=== PATIENT | female | born 1935 | race Caucasian/White ===

== ENCOUNTER → 2017-01-19 | Outpatient (CLI) | payer MEDICARE ==
--- NOTE | 2017-01-19 22:10 | PCVCIMAG ---
EXAM: BILATERAL LOWER EXTREMITY ARTERIAL DUPLEX INDICATION: Peripheral Arterial Disease. Leg pain. FINDINGS: Right Leg: Satisfactory arterial waveforms in the common femoral and profunda femoral artery and in the superficial femoral artery and popliteal artery without high-grade stenosis. Occlusion throughout the anterior tibial artery. The posterior tibial and peroneal arteries are patent. Left Leg: Satisfactory arterial waveforms in the common femoral and profunda femoral artery. 60-70% stenosis mid superficial femoral artery. 60% stenosis mid popliteal artery. Occlusion of the anterior tibial artery. Segmental occlusion proximal posterior tibial artery. Peroneal artery is patent. IMPRESSION: Occlusion right anterior tibial artery. 60-70% mid left superficial femoral artery. 60% stenosis mid left popliteal artery. Occlusion left anterior tibial artery. Segmental occlusion proximal left posterior tibial artery. LOC:OFFICE
== END | disposition home or self-care (01) ==
LOC: PCVCIMAG 16:10
PROVIDERS: ATTEND Nuclear Medicine Nuclear Cardiology
DX: I70.202 Unspecified atherosclerosis of native arteries of extremities, left leg (principal); I77.1 Stricture of artery; L97.929 Non-pressure chronic ulcer of unspecified part of left lower leg with unspecified severity; E11.9 Type 2 diabetes mellitus without complications
CPT/HCPCS: 36415; 93925

== ENCOUNTER → 2017-01-25 | Outpatient (CLI) | payer MEDICARE ==
[~2017-01-25] MED LIST: CLOPIDOGREL BISULFATE 75 MG TABLET ONE; DIAZEPAM 10 MG TABLET. ONE; EPINEPHrine 1 MG/ML VIAL ONE; EPTIFIBATIDE BOLUS 2,000 MCG/ML 10ML VIAL. IV ONE; HEPARIN 1,000 UNIT/ML VIAL for PCVC ONE; HEPARIN SODIUM 5,000 UNIT/ML VIAL for PCVC. ONE; IODIXANOL 270 MG/ML 100 ML VIAL. ONE; IV NORMAL SALINE 1000ML BAG 1,000 ML ONE; IV NORMAL SALINE 500ML BAG 500 ML ONE; LIDOCAINE 1% Multi-Dose 20 ML VIAL. ONE; MIDAZOLAM HCL/PF 2 MG/2 ML VIAL. ONE; fentaNYL PF VIAL 100 MCG/2 ML VIAL ONE
--- NOTE | 2017-01-25 18:20 | PCVCINTER ---
EXAM: 1. AORTOGRAM AND BILATERAL LOWER EXTREMITY RUNOFF ANGIOGRAM 2. BILATERAL RENAL ANGIOGRAPHY 3. LEFT TIBIOPERONEAL TRUNK ATHERECTOMY AND STENT PLACEMENT. 4. SECONDARY THROMBECTOMY LEFT TIBIOPERONEAL TRUNK. 5. STENT PLACEMENT AND DRUG COATED BALLOON ANGIOPLASTY LEFT SUPERFICIAL FEMORAL ARTERY. INDICATION: Peripheral arterial disease. Coronary artery disease. Nonhealing ulcer right lower extremity. Hypertension. Renal atherosclerosis. PROCEDURE: Procedure and risks of angiography intervention is appropriate including limb loss stroke and were discussed with the patient's family and consent obtained. The patient's right groin was prepped abnormal sterile fashion. IV conscious sedation was used to procedure with appropriate monitoring from 11:00 AM through 12:30 PM. Ultrasound was used to interrogate the right groin and showed the right common femoral artery to be patent. A permanent spot film was obtained. Under ultrasound guidance access into the right common femoral artery was obtained and a 5 Montenegrin sheath was placed. Through this a 5 Montenegrin flush catheter was placed into the abdominal aorta at the level of the renal arteries and AP aortogram was performed. Catheter was positioned at the aortic bifurcation and both oblique views of the pelvis were obtained. Catheter was positioned into the right external iliac artery and right leg runoff angiography was performed. Catheter was exchanged for a visceral catheter was placed into the right renal arteries and right renal angiograms obtained. Catheter was placed into the the left renal arteries and left renal angiograms were obtained. Catheter was advanced to the level of the left external iliac artery and left leg runoff angiography was obtained. Patient was given 4500 units of heparin. A 6 Montenegrin crossover sheath was placed via the right groin to the level of the left common femoral artery. Atherectomy of the left tibioperoneal trunk was performed with 0.9 mm [email or web address] laser atherectomy catheter in the standard fashion. Following atherectomy small areas of thrombus were observed and because of this secondary thrombectomy throughout the left tibioperoneal trunk was carried out with mechanical suction thrombectomy catheter in the standard fashion. Minimal debris was removed. Stent placement across the areas of high-grade stenosis in the left tibioperoneal trunk was carried out with a 3.0 x 30 Medtronic integrity stent with subsequent dilatation to 3.0 mm. Following this drug coated balloon angioplasty of the left superficial femoral artery was carried out with a 5 x 40 Medtronic Admiral MACHINE II COREMAKER catheter. Follow-up angiogram was performed. Stent placement across the areas of high-grade stenosis in the left superficial femoral artery was carried out with a 6 x 20 Smart stent with subsequent dilatation to 5.0 mm. Catheters and wires removed. Sheath was removed and hemostasis obtained using the FISH device. No immediate complications. FINDINGS: Aortogram: There is one right and one left renal artery. Mild plaque infrarenal abdominal aorta. Pelvis: Moderate stenosis proximal/mid common iliac artery. Left common iliac artery is patent. Both internal iliac arteries are patent. The right and left external iliac arteries are patent. The right and left common femoral and profunda femoral arteries are patent. Right renal artery: Minimal plaque proximal vessel without significant stenosis. Left renal artery: Minimal plaque proximal vessel without significant stenosis. Right leg: Moderate scattered plaque throughout the superficial femoral artery and popliteal artery without high-grade stenosis. The anterior tibial and peroneal arteries are occluded. 95% stenosis distal tibioperoneal trunk with moderate stenosis in the proximal and proximal to mid posterior tibial artery. Left le% stenosis mid/distal superficial femoral artery with mild diffuse stenosis in the popliteal artery most marked distally. Segmental occlusion of the tibioperoneal trunk. The anterior and posterior tibial arteries are occluded. The mid and distal peroneal artery shows good patency to refill the distal posterior tibial artery and the distal most anterior tibial artery to runoff into the foot. Left tibioperoneal trunk: Following procedure as above vessel is widely patent. Left superficial femoral artery: Following procedure as above the treated portion of the vessel shows satisfactory patency. IMPRESSION: Segmental occlusion left tibioperoneal trunk and 80% stenosis mid/distal left superficial femoral artery were treated as above with good patency restored. Occlusion of the left anterior and posterior tibial arteries. Critical grade stenosis distal right tibial peroneal trunk with single right posterior tibial artery runoff. follow up LOC:[place] [id number]
== END | disposition home or self-care (01) ==
LOC: PCVCINTER 09:26
PROVIDERS: ATTEND Nuclear Medicine Nuclear Cardiology
DX: I70.213 Atherosclerosis of native arteries of extremities with intermittent claudication, bilateral legs (principal); I25.10 Atherosclerotic heart disease of native coronary artery without angina pectoris; I70.1 Atherosclerosis of renal artery; I10 Essential (primary) hypertension
CPT/HCPCS: 36252; 37186; 37226; 37231; 75716; 76937; 99152; 99153; C1725; C1751; C1757; C1769; C1876; C1885; C1887; C1894; C2623; J0171; J0690; J1327; J1644; J2250; J3010; J7030; J7040; Q9966

== ENCOUNTER → 2017-01-26 | Outpatient (CLI) | payer MEDICARE ==
[~2017-01-26] MED LIST changes: -CLOPIDOGREL BISULFATE 75 MG TABLET ONE; -EPINEPHrine 1 MG/ML VIAL ONE; -HEPARIN 1,000 UNIT/ML VIAL for PCVC ONE; +PROTAMINE 50 MG/5 ML VIAL. IV ONE; +diphenhydrAMINE 50 MG/ML VIAL ONE; +hydrALAZINE 20 MG/ML VIAL. ONE
--- NOTE | 2017-01-26 10:45 | PCVCINTER ---
EXAM: 1. RIGHT TIBIOPERONEAL TRUNK/PROXIMAL POSTERIOR TIBIAL ARTERY ATHERECTOMY AND STENT PLACEMENT. 2. SECONDARY THROMBECTOMY RIGHT TIBIOPERONEAL TRUNK/PROXIMAL POSTERIOR TIBIAL ARTERY. 3. RIGHT COMMON ILIAC ARTERY STENT PLACEMENT. INDICATION: Peripheral arterial disease. Hypertension. Renal atherosclerosis. PROCEDURE: Procedure and risks of angiography intervention is appropriate including limb loss stroke and were discussed with the patient's family and consent obtained. The patient's left groin was prepped abnormal sterile fashion. IV conscious sedation was used to procedure with appropriate monitoring from 8:15 AM through 9:45 AM. Ultrasound was used to interrogate the left groin and showed the left common femoral artery to be patent. A permanent spot film was obtained. Under ultrasound guidance access into the left common femoral artery was obtained and a 6 [place] [employer] crossover sheath was placed via the left groin to the level of the right common femoral artery. Atherectomy of the right tibioperoneal trunk/proximal posterior tibial artery was performed with 0.9 mm [employer] laser atherectomy catheter in the standard fashion. Following atherectomy small areas of thrombus were observed and because of this secondary thrombectomy throughout the right tibioperoneal trunk/proximal posterior tibial artery was carried out with mechanical suction thrombectomy catheter in the standard fashion. Minimal debris was removed. Angioplasty using a 2.5 x 100 Angiosculpt balloon was performed throughout the right tibial peroneal trunk and upper posterior tibial artery. Stent placement across the areas of high-grade stenosis in the right tibioperoneal trunk/proximal posterior tibial artery was carried out with a 3.0 x 30 and a 3.0 x 30 Medtronic integrity stents with subsequent dilatation to 3.0 mm. Stent placement across the areas of high-grade stenosis in the right common iliac artery was carried out with a 10 x 60 Smart control stent with subsequent dilatation to 9.0 mm. Follow-up angiogram was performed. Catheters and wires removed. Sheath was removed and hemostasis obtained using the FISH device. FINDINGS: Right common iliac artery: Following procedure as above vessel shows good patency. Right tibioperoneal trunk/proximal posterior tibial artery: Following procedure as above vessel shows good patency. IMPRESSION: Critical grade stenosis right tibioperoneal trunk with proximal right posterior tibial artery stenosis were treated as above good patency restored. Moderate right common iliac artery stenosis was treated with stent placement with satisfactory technical result. follow up LOC:[id number]
--- NOTE | 2017-01-26 18:42 | PCVCIMAG ---
EXAM: DUPLEX ULTRASOUND OF THE LEFT GROIN INDICATION: Groin swelling and pain. FINDINGS: No pseudoaneurysm is present. The common femoral artery and vein are patent. No arteriovenous fistula is seen. IMPRESSION: Study is negative for pseudoaneurysm. LOC:[id number]
== END | disposition home or self-care (01) ==
LOC: PCVCINTER 07:29
PROVIDERS: ATTEND Nuclear Medicine Nuclear Cardiology
DX: I70.211 Atherosclerosis of native arteries of extremities with intermittent claudication, right leg (principal); I70.1 Atherosclerosis of renal artery; I10 Essential (primary) hypertension
CPT/HCPCS: 37186; 37221; 37231; 76937; 93926; 99152; 99153; C1725; C1751; C1757; C1769; C1876; C1885; C1894; J0360; J0690; J1200; J1327; J1644; J2250; J3010; J7030; J7040

== ENCOUNTER → 2017-05-20 | Outpatient (CLI) | payer MEDICARE | END | disposition home or self-care (01) | LOC: PCVCIMAG 13:47 | DX: I73.9 Peripheral vascular disease, unspecified (principal); I25.10 Atherosclerotic heart disease of native coronary artery without angina pectoris; I10 Essential (primary) hypertension; E78.00 Pure hypercholesterolemia, unspecified; E11.9 Type 2 diabetes mellitus without complications; Z79.4 Long term (current) use of insulin | CPT/HCPCS: 93925; G0463 ==

== ENCOUNTER → 2018-04-13 | Outpatient (CLI) | payer MEDICARE ==
--- NOTE | 2018-04-13 16:42 | PCVCIMAG ---
EXAM: BILATERAL LOWER EXTREMITY ARTERIAL DUPLEX INDICATION: Peripheral Arterial Disease. Leg pain. FINDINGS: Right Leg: Common femoral and profunda femoral arteries are patent. Superficial femoral artery and popliteal artery are patent. There is occlusion of the peroneal artery and anterior tibial artery. Posterior tibial artery is patent. Previous stent tibioperoneal trunk and proximal posterior tibial artery is patent. Left Leg: Common femoral profunda femoral arteries are patent. 60-70% stenosis distal left superficial femoral artery within prior stent. Popliteal artery is patent. The anterior tibial and posterior tibial arteries are occluded as seen previously. The previous tibioperoneal trunk stent is patent. Peroneal artery is patent. IMPRESSION: Unchanged occlusion of the right anterior tibial and peroneal arteries. Previous right tibioperoneal trunk/proximal posterior tibial artery stent is patent. 60-70% restenosis distal right superficial femoral artery within prior stent. Unchanged occlusion of the right anterior and posterior tibial arteries. Previous left tibioperoneal trunk and proximal peroneal artery stent maintaining satisfactory patency. Incidental note is made of a 1.4 x 8.2 x 3.7 cm right popliteal cyst and a 2.0 x 6.6 x 8.4 center left popliteal cyst. LOC:[id number]
== END | disposition home or self-care (01) ==
LOC: PCVCIMAG 14:50
PROVIDERS: ATTEND Emergency Medicine
DX: I73.9 Peripheral vascular disease, unspecified (principal); M71.22 Synovial cyst of popliteal space [Baker], left knee; M71.21 Synovial cyst of popliteal space [Baker], right knee
CPT/HCPCS: 93925

== ENCOUNTER → 2018-04-20 | Outpatient (CLI) | payer MEDICARE | END | disposition home or self-care (01) | LOC: PCVCCLINIC 15:35 | PROVIDERS: ATTEND Internal Medicine Cardiovascular Disease | DX: I25.10 Atherosclerotic heart disease of native coronary artery without angina pectoris (principal); E78.00 Pure hypercholesterolemia, unspecified; E11.22 Type 2 diabetes mellitus with diabetic chronic kidney disease; I13.0 Hypertensive heart and chronic kidney disease with heart failure and stage 1 through stage 4 chronic kidney disease, or unspecified chronic kidney disease; I50.9 Heart failure, unspecified; N18.9 Chronic kidney disease, unspecified; Z79.4 Long term (current) use of insulin | CPT/HCPCS: 36415 ==

== ENCOUNTER → 2018-05-04 | Outpatient (CLI) | payer MEDICARE ==
[~2018-05-04] MED LIST changes: +CLOPIDOGREL BISULFATE 75 MG TABLET ONE; -HEPARIN SODIUM 5,000 UNIT/ML VIAL for PCVC. ONE; +HEPARIN for SUB-Q USE 5,000 UNIT/ML VIAL. SQ ONE; -IV NORMAL SALINE 500ML BAG 500 ML ONE; -LIDOCAINE 1% Multi-Dose 20 ML VIAL. ONE; +LIDOCAINE 1%/EPI 1:100,000 20 ML VIAL. ONE; -PROTAMINE 50 MG/5 ML VIAL. IV ONE; -diphenhydrAMINE 50 MG/ML VIAL ONE
--- NOTE | 2018-05-04 15:06 | PCVCINTER ---
EXAM: 1. AORTOGRAM AND BILATERAL LOWER EXTREMITY RUNOFF ANGIOGRAM 2. BILATERAL RENAL ANGIOGRAPHY 3. LEFT SUPERFICIAL FEMORAL ARTERY ATHERECTOMY AND STENT PLACEMENT. 4. LEFT TIBIOPERONEAL TRUNK ATHERECTOMY AND STENT PLACEMENT. 5. SECONDARY THROMBECTOMY LEFT TIBIOPERONEAL TRUNK. 6. DRUG COATED BALLOON ANGIOPLASTY LEFT SUPERFICIAL FEMORAL ARTERY. INDICATION: Peripheral arterial disease. Coronary artery disease. Nonhealing ulcer left lower extremity. Hypertension. Renal atherosclerosis. No prior catheter based angiographic study is available. A full diagnostic angiogram study is performed today and the decision to intervene is based on this diagnostic study. PROCEDURE: Procedure and risks of angiography intervention is appropriate including limb loss stroke and were discussed with the patient's family and consent obtained. The patient's right groin was prepped in the normal sterile fashion. IV conscious sedation was used throughout procedure with appropriate monitoring from 12:30 PM through 2:00 PM. Ultrasound was used to interrogate the right groin and showed the right common femoral artery to be patent. A permanent spot film was obtained. Under ultrasound guidance access into the right common femoral artery was obtained and a 5 Taiwanese sheath was placed. Through this a 5 Taiwanese flush catheter was placed into the abdominal aorta at the level of the renal arteries and AP aortogram was performed. Catheter was positioned at the aortic bifurcation and both oblique views of the pelvis were obtained. Catheter was positioned into the right external iliac artery and right leg runoff angiography was performed. Catheter was exchanged for a visceral catheter was placed into the right renal arteries and right renal angiograms obtained. Catheter was placed into the the left renal arteries and left renal angiograms were obtained. Catheter was advanced to the level of the left external iliac artery and left leg runoff angiography was obtained. Patient was given 4500 units of heparin. A 6 Taiwanese crossover sheath was placed via the right groin to the level of the left common femoral artery. Atherectomy of the left superficial femoral artery was performed with 0.9 mm [employer] laser atherectomy catheter in the standard fashion. Atherectomy of the left tibioperoneal trunk was performed with 0.9 mm [employer] laser atherectomy catheter in the standard fashion. Following atherectomy small areas of thrombus were observed and because of this secondary thrombectomy throughout the left tibioperoneal trunk was carried out with mechanical suction thrombectomy catheter in the standard fashion. Minimal debris was removed. Stent placement across the areas of high-grade stenosis in the left tibioperoneal trunk was carried out with a 3.5 x 12 [employer] integrity stent with subsequent dilatation to 3.5 mm. Stent placement across the areas of high-grade stenosis in the left superficial femoral artery was carried out with a 6 x 40 Smart control stent with subsequent dilatation to 5.0 mm. Following this drug coated balloon angioplasty of the left superficial femoral artery was carried out with a 5 x 60 [employer] Marnie Vamshi LASER BEAM MACHINE OPERATOR catheter. Follow-up angiogram was performed. Catheters and wires removed. Sheath was removed and hemostasis obtained using the FISH device. No immediate complications. FINDINGS: Aortogram: There is one right and one left renal artery. Mild plaque infrarenal abdominal aorta without significant stenosis. Pelvis: Previous stent right common iliac artery is widely patent. Left common iliac artery shows good patency. Both internal iliac arteries are patent. The right and left external iliac arteries are patent. The right and left common femoral and profunda femoral arteries are patent. Right renal artery: Minimal plaque proximal vessel does not cause significant stenosis. Left renal artery: Minimal plaque proximal vessel does not cause significant stenosis. Right leg: Diffuse plaque throughout the superficial femoral artery without flow-limiting stenosis. Moderate plaque throughout the popliteal artery with mild stenosis mid/distal portion not felt be flow-limiting. The anterior tibial and peroneal arteries are occluded throughout. Previous stents tibioperoneal trunk are widely patent. Posterior tibial artery is widely patent into moderate-sized plantar arteries which refills the metatarsal arch. Left leg: Moderate plaque throughout the proximal/mid superficial femoral artery without flow-limiting stenosis. 90% stenosis distal superficial femoral artery the distal margin of a prior stent. Diffuse plaque throughout the popliteal artery without flow-limiting stenosis. Moderate stenosis origin tibioperoneal trunk. Previous stents in tibial peroneal trunk otherwise patent. The anterior tibial and posterior tibial arteries are occluded throughout. The peroneal artery to moderate size vessel and shows fairly good patency throughout to refill a moderate-sized dorsalis pedis and distal posterior tibial artery into plantar arteries. Left superficial femoral artery: Following procedure as above vessel shows good patency. Left tibioperoneal trunk: Following procedure as above vessel shows good patency. IMPRESSION: 90% stenosis distal left superficial femoral artery at distal margin of a prior stent and moderate stenosis proximal tibia oh peroneal trunk the proximal margin of a prior stent were treated as above with good patency restored. 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 Previous right tibioperoneal trunk stents maintaining good patency. LOC:[id number]
== END | disposition home or self-care (01) ==
LOC: PCVCINTER 11:34
PROVIDERS: ATTEND Nuclear Medicine Nuclear Cardiology
DX: I70.248 Atherosclerosis of native arteries of left leg with ulceration of other part of lower leg (principal); L97.828 Non-pressure chronic ulcer of other part of left lower leg with other specified severity; I70.1 Atherosclerosis of renal artery; I70.291 Other atherosclerosis of native arteries of extremities, right leg; I70.0 Atherosclerosis of aorta; I25.10 Atherosclerotic heart disease of native coronary artery without angina pectoris; I13.0 Hypertensive heart and chronic kidney disease with heart failure and stage 1 through stage 4 chronic kidney disease, or unspecified chronic kidney disease; E11.22 Type 2 diabetes mellitus with diabetic chronic kidney disease; N18.9 Chronic kidney disease, unspecified; I50.9 Heart failure, unspecified; Z79.4 Long term (current) use of insulin; E78.00 Pure hypercholesterolemia, unspecified; I25.5 Ischemic cardiomyopathy; Z89.429 Acquired absence of other toe(s), unspecified side; Z98.890 Other specified postprocedural states; Z82.49 Family history of ischemic heart disease and other diseases of the circulatory system; Z79.899 Other long term (current) drug therapy; Z79.82 Long term (current) use of aspirin
CPT/HCPCS: 36252; 37186; 37227; 37231; 75716; 76937; 99152; 99153; C1725; C1751; C1757; C1760; C1769; C1876; C1885; C1894; C2623; J0690; J1327; J1644; J2250; J3010; J3490; J7030; Q9967; J0360

== ENCOUNTER → 2018-08-30 | Outpatient (CLI) | payer MEDICARE ==
--- NOTE | 2018-08-30 19:30 | PCVCIMAG ---
EXAM: BILATERAL CAROTID DUPLEX INDICATION: Carotid Occlusive Disease. FINDINGS: Doppler Measurements (centimeters per second): RIGHT: Peak CCA-68, Peak ECA-96, Diastolic ICA-16, Peak ICA-61, ICA/CCA Ratio-0.9. LEFT: Peak CCA-77, Peak ECA-103, Diastolic ICA-20, Peak ICA-79, ICA/CCA Ratio-1.0. RIGHT CAROTID: The carotid bulb has mild plaque. The proximal internal carotid artery shows <40% stenosis. The common carotid artery shows no significant stenosis. The external carotid artery shows no significant stenosis. LEFT CAROTID: The carotid bulb has mild plaque. The proximal internal carotid artery shows <40% stenosis. The common carotid artery shows no significant stenosis. The external carotid artery shows no significant stenosis. Antegrade flow in both vertebral arteries. IMPRESSION: <40% stenosis of the right internal carotid artery with mild plaque. <40% stenosis of the left internal carotid artery with mild plaque. LOC:[place] [id number]
--- NOTE | 2018-08-30 19:56 | PCVCIMAG ---
EXAM: BILATERAL LOWER EXTREMITY ARTERIAL DUPLEX INDICATION: Peripheral Arterial Disease. Leg pain. FINDINGS: Right Leg: Common femoral profunda femoral arteries are patent. Superficial femoral artery and popliteal artery are patent. Occlusion of the anterior tibial and peroneal arteries. Previous stent tibioperoneal trunk maintaining satisfactory patency. Posterior tibial artery is patent. Left Leg: Common femoral and profunda femoral arteries are patent. Superficial femoral and popliteal are patent. Previous stent distal superficial femoral artery is patent. Occlusion throughout the anterior tibial artery. High-grade stenosis/occlusion posterior tibial artery. The peroneal artery is patent. Previous tibioperoneal trunk stent is patent. IMPRESSION: Previous right tibioperoneal trunk stent maintaining satisfactory patency. Previous distal left superficial femoral artery stent is patent. Previous left tibioperoneal trunk stent is patent. Unchanged occlusion of the right anterior tibial artery. Unchanged occlusion of the left anterior and posterior tibial arteries. Incidental note is made of a 2.4 x 5.0 x 5.5 cm left popliteal cyst. LOC:[id number]
== END | disposition home or self-care (01) ==
LOC: PCVCIMAG 15:11
PROVIDERS: ATTEND Nuclear Medicine Nuclear Cardiology
DX: I65.23 Occlusion and stenosis of bilateral carotid arteries (principal); M71.22 Synovial cyst of popliteal space [Baker], left knee; M71.21 Synovial cyst of popliteal space [Baker], right knee; E11.51 Type 2 diabetes mellitus with diabetic peripheral angiopathy without gangrene; E78.5 Hyperlipidemia, unspecified; I10 Essential (primary) hypertension; E78.00 Pure hypercholesterolemia, unspecified; Z79.4 Long term (current) use of insulin
CPT/HCPCS: 93880; 93925